=== PATIENT | female | born 1940 | race Caucasian/White ===

== ENCOUNTER 2021-08-18 11:44 | Outpatient (CLI) | payer MEDICARE, BC | END 2021-08-18 11:45 | disposition home or self-care (01) | LOC: LABBT 11:44 | PROVIDERS: ATTEND Obstetrics & Gynecology | DX: Z20.822 Contact with and (suspected) exposure to COVID-19 (principal) | CPT/HCPCS: U0003; U0005 ==

== ENCOUNTER 2021-08-21 08:22 | Outpatient (CLI) | payer MEDICARE, BC | END 2021-08-21 08:23 | disposition home or self-care (01) | LOC: RAD 08:22 | PROVIDERS: ATTEND Internal Medicine Gastroenterology | DX: I71.9 Aortic aneurysm of unspecified site, without rupture (principal) | CPT/HCPCS: 74246 ==

== ENCOUNTER 2024-04-23 21:16 | Observation (INO) | payer MEDICARE, BC ==
[~2024-04-23 21:16] MED LIST: Iopamidol-370 76% 500 ML MDV (1 ML CHARGE) ONE
[2024-04-23] MEDS ORDERED: Dronedarone HCl 400 MG TAB PO SCH (22:30)
[2024-04-23] MEDS ORDERED: Labetalol HCl 100 MG/20 ML VIAL ONE (23:01)
[2024-04-23 23:07] LABS: #Basophils 0.06 10x3/uL (0.0-0.2); %Basophils 0.5 % (0.0-1.0); %Eosinophils 0.5 % (0.0-10.0); %Lymphocytes 19.3 % (21.0-51.0); %Monocytes 7.4 % (0.0-10.0); %Neutrophils 71.9 % (42.0-75.0); Hematocrit 45.1 % (36.0-47.0); Hemoglobin 15.2 g/dL (12.0-16.0); Mean Corpuscular HGB CONC 33.7 g/dL (32.0-36.0); Mean Corpuscular Hemoglobin 28.6 pg (27.0-31.0); Mean Corpuscular Volume 84.8 fL (78.0-98.0); Mean Platelet Volume 8.8 fL (7.4-10.4); Platelet Count 292 10x3/uL (130-400); RBC Distribution Width 15.7 % (11.5-14.5); Red Blood Cell (RBC) Count 5.32 mill/uL (4.20-5.40)
[2024-04-23 23:25] LABS: ALT (SGPT) 20 U/L (Less than 34); AST (SGOT) 42 U/L (11-34); Alkaline Phosphatase 70 U/L (40-110); Anion Gap 15 mmol/L (10-20); BUN (Urea Nitrogen) 18 mg/dL (9.8-20.1); Bilirubin, Total 0.4 mg/dL (0.3-1.2); Calc. Creatinine Clearance 0 mL/min (70-130); Calcium 9.9 mg/dL (7.8-10.44); Carbon Dioxide 27 mmol/L (23-31); Chloride 101 mmol/L (98-107); Estimated GFR 88; Globulin 3.7 g/dL (2.4-3.5); Glucose 91 mg/dL (83-110); Potassium 3.6 mmol/L (3.5-5.1); Protein, Total 7.7 g/dL (5.8-8.1); Sodium 139 mmol/L (136-145)
[2024-04-23 23:26] LABS: Troponin I 0.033 ng/mL (< 0.028)
[2024-04-24] MEDS ORDERED: Ondansetron PF 4 MG/2 ML Vial IVP PRN (01:26)
[2024-04-24] MEDS ORDERED: Ondansetron ODT 4 MG TAB PO PRN (01:26)
[2024-04-24] MEDS ORDERED: traMADol HCl 50 MG TAB PO PRN (01:26)
[2024-04-24] MEDS ORDERED: Acetaminophen 325 MG TAB PO PRN (01:26)
[2024-04-24 01:36] LABS: Troponin I 0.042 ng/mL (< 0.028)
[2024-04-24 04:09] VITALS: BMI 17.6
[2024-04-24 05:03] LABS: #Basophils 0.06 10x3/uL (0.0-0.2); %Basophils 0.5 % (0.0-1.0); %Eosinophils 0.3 % (0.0-10.0); %Lymphocytes 19.4 % (21.0-51.0); %Monocytes 6.4 % (0.0-10.0); Hematocrit 39.4 % (36.0-47.0); Hemoglobin 13.2 g/dL (12.0-16.0); Mean Corpuscular HGB CONC 33.5 g/dL (32.0-36.0); Mean Corpuscular Volume 86.6 fL (78.0-98.0); Platelet Count 251 10x3/uL (130-400); RBC Distribution Width 15.8 % (11.5-14.5); Red Blood Cell (RBC) Count 4.55 mill/uL (4.20-5.40)
[2024-04-24] MEDS: Levothyroxine Sodium 75 MCG TAB PO SCH (05:12)
[2024-04-24 05:16] LABS: ALT (SGPT) 15 U/L (Less than 34); AST (SGOT) 26 U/L (11-34); Alkaline Phosphatase 51 U/L (40-110); Anion Gap 12 mmol/L (10-20); BUN (Urea Nitrogen) 13 mg/dL (9.8-20.1); Bilirubin, Total 0.3 mg/dL (0.3-1.2); Calc. Creatinine Clearance 49 mL/min (70-130); Calcium 8.4 mg/dL (7.8-10.44); Carbon Dioxide 24 mmol/L (23-31); Cardiac Risk 2.8 (Less than 4.5); Chloride 109 mmol/L (98-107); Cholesterol 189 mg/dl (< 200 Desired); Estimated GFR 91; Globulin 2.8 g/dL (2.4-3.5); Glucose 89 mg/dL (83-110); HDL Cholesterol 67 mg/dL (>60 Neg Risk); LDL Cholesterol, Calculated 105 mg/dL; Potassium 3.5 mmol/L (3.5-5.1); Protein, Total 5.8 g/dL (5.8-8.1); Sodium 141 mmol/L (136-145); Triglycerides 86 mg/dL (Less than 150)
[2024-04-24 05:19] LABS: Troponin I 0.047 ng/mL (< 0.028)
[2024-04-24 08:22] LABS: Troponin I 0.088 ng/mL (< 0.028)
[2024-04-24 08:43] VITALS: BP 117/59; TEMP 97.6
[2024-04-24] MEDS: Amlodipine 5 MG TAB PO SCH (08:46)
[2024-04-24] MEDS: Apixaban 2.5 MG TAB PO SCH (08:47)
[2024-04-24] MEDS: Aspirin 81 mg Enteric Coated Tablet PO SCH (08:48)
[2024-04-24] MEDS: Dronedarone HCl 400 MG TAB PO SCH (08:50)
[2024-04-24] MEDS: Famotidine/PF 20 mg/2ml Vial SLOW IVP SCH (08:53)
[2024-04-24] MEDS: Famotidine 20 MG TAB PO SCH (09:00)
[2024-04-24] MEDS ORDERED: Atorvastatin Calcium 40 MG TAB PO SCH (21:00)
== END 2024-04-24 17:13 | disposition home or self-care (01) ==
LOC: ERS 21:16 → 2NO 04-24 01:25
PROVIDERS: ADMIT Internal Medicine; ATTEND Internal Medicine
DX: G45.9 Transient cerebral ischemic attack, unspecified (principal); R20.0 Anesthesia of skin; I48.92 Unspecified atrial flutter; I10 Essential (primary) hypertension; E03.9 Hypothyroidism, unspecified; R07.89 Other chest pain; Z88.2 Allergy status to sulfonamides; Z79.899 Other long term (current) drug therapy; D72.829 Elevated white blood cell count, unspecified; Z79.890 Hormone replacement therapy; Z79.82 Long term (current) use of aspirin; Z79.01 Long term (current) use of anticoagulants; Z90.49 Acquired absence of other specified parts of digestive tract; Z90.710 Acquired absence of both cervix and uterus
CPT/HCPCS: 70496; 70498; 70551; 71045; 71250; 80053 ×2; 80061; 83880; 84145; 84484 ×2; 85025 ×2; 93005; 94760; 96374; 99285; G0378 ×2; Q9967; 36415